=== PATIENT | female | born 1955 | race Caucasian/White ===

== ENCOUNTER → 2018-08-19 | Outpatient (CLI) | payer MEDICARE, OTHER ==
[~2018-08-19] MED LIST: ALPR0.25 PO; HYDR-3240 PO; LOSA1TAB19 PO; MULT-758 PO; ONDA4TAB7 PO; OXYC-306 PO; PRAS6.5I VG
[2018-08-19 11:48] LABS: BASOPHILS # (AUTO) 0.01 x10^3/uL (0-0.1); BASOPHILS % (AUTO) 0 % (0-1); EOSINOPHILS # (AUTO) 0.12 x10^3/uL (0-0.4); EOSINOPHILS % (AUTO) 3 % (1-7); LYMPHOCYTES % (AUTO) 42 % (22-44); MD NO; MEAN CORPUSCULAR HEMOGLOBIN 22.3 pg (27.0-34.8); MEAN CORPUSCULAR HGB CONC 32.4 g/dL (32.4-35.8); MEAN CORPUSCULAR VOLUME 68.7 fL (80-100); MEAN PLATELET VOLUME 8.2 fL (7.4-10.4); MONOCYTES # (AUTO) 0.54 x10^3/uL (0.2-0.8); MONOCYTES % (AUTO) 11 % (2-9); NEUTROPHILS % (AUTO) 44 % (42-75); PLATELET COUNT 175 x10^3/uL (130-400); RED BLOOD COUNT 5.42 x10^6/uL (3.82-5.3); RED CELL DISTRIBUTION WIDTH 16.7 % (9.6-15.2)
[2018-08-19 11:58] LABS: INTERNATIONAL NORMALIZED RATIO 1.01 (0.93-1.1); PROTHROMBIN TIME 10.6 Seconds (9.6-11.5)
[2018-08-19 12:18] LABS: ALANINE AMINOTRANSFERASE 48 U/L (12-78); ALBUMIN 4.2 g/dL (3.4-5.0); ANION GAP 7 mmol/L (5-15); CALCIUM 8.8 mg/dL (8.5-10.1); CHLORIDE 104 mmol/L (98-107); CREATININE 0.92 mg/dL (0.55-1.02)
[2018-08-19 12:20] LABS: ALKALINE PHOSPHATASE 72 U/L (45-117); BILIRUBIN,TOTAL 0.6 mg/dL (0.2-1.0); TOTAL PROTEIN 7.7 g/dL (6.4-8.2)
== END | disposition home or self-care (01) ==
LOC: STAR 10:25
PROVIDERS: ATTEND Family Medicine
DX: Z01.818 Encounter for other preprocedural examination (principal); R19.01 Right upper quadrant abdominal swelling, mass and lump; N83.7 Hematoma of broad ligament
CPT/HCPCS: 36415; 71046; 80053; 85025; 85610; 85730; 93005

== ENCOUNTER 2018-08-23 12:42 | Observation (INO) | payer MEDICARE, OTHER ==
[~2018-08-23] VITALS: Ht 165.1 cm; Wt 71.9 kg
[~2018-08-23 12:42] MED LIST changes: +BUPIVACAINE/PF 0.25% ONE; +INDOCYANINE GREEN 25 MG VIAL ONE; -ONDA4TAB7 PO; -OXYC-306 PO
[2018-08-23] MEDS ORDERED: DIAZEPAM 5 MG TABLET PO ONE (13:00)
[2018-08-23] MEDS ORDERED: ACETAMINOPHEN 500 MG TABLET PO ONE (13:00)
[2018-08-23 13:10] VITALS: BP 158/95
[2018-08-23] MEDS ORDERED: LACTATED RINGERS 1,000 ML IV SCH (13:30)
[2018-08-23] MEDS ORDERED: MIDAZOLAM 1 MG/ML, 2ML ONE (13:56)
[2018-08-23] MEDS ORDERED: FENTANYL PF 250 MCG/5ML ONE (13:57)
[2018-08-23] MEDS ORDERED: CIPROFLOXACIN/PMX 400MG/200ML 200 ML ONE (17:36)
[2018-08-23] MEDS ORDERED: VANCOMYCIN 1,000 MG ONE (17:36)
[2018-08-23] MEDS ORDERED: EPHEDRINE 50 MG/ML, 1ML ONE (17:40)
[2018-08-23] MEDS ORDERED: LIDOCAINE 2% 100MG/5ML SYRINGE ONE (17:40)
[2018-08-23] MEDS ORDERED: LORazepam 2 MG/ML, 1ML IVPush PRN (18:00)
[2018-08-23] MEDS ORDERED: ONDANSETRON 2MG/ML, 2ML IV PRN (18:00)
[2018-08-23] MEDS ORDERED: MEPERIDINE/PF 25MG/0.5ML IVPush PRN (18:00)
[2018-08-23] MEDS ORDERED: OXYcodone 5 MG/5 ML ORAL.SOL UDC PO PRN (18:00)
[2018-08-23] MEDS ORDERED: PROMETHAZINE 25 MG/ML, 1ML IV PRN (18:00)
[2018-08-23] MEDS ORDERED: ACETAMINOPHEN 325 MG TABLET PO PRN (18:00)
[2018-08-23] MEDS ORDERED: hydrALAzine 20 MG/ML, 1ML IV PRN (18:00)
[2018-08-23] MEDS ORDERED: ONDANSETRON ODT 8 MG PO PRN (18:00)
[2018-08-23] MEDS ORDERED: LABETALOL 5MG/ML, 20ML IV PRN (18:00)
[2018-08-23] MEDS ORDERED: GLYCOPYRROLATE 0.2MG/1ML, 5ML ONE (18:21)
[2018-08-23] MEDS ORDERED: NEOSTIGMINE 1 MG/ML, 10ML ONE (18:21)
[2018-08-23] MEDS ORDERED: SUCCINYLCHOLINE 20 MG/ML, 10ML ONE (18:21)
[2018-08-23] MEDS ORDERED: CEFAZOLIN 1,000 MG ONE (18:21)
[2018-08-23] MEDS ORDERED: PROPOFOL 10 MG/ML, 20ML ONE (18:21)
[2018-08-23] MEDS ORDERED: DEXAMETHASONE 4 MG/ML, 1ML ONE (18:21)
[2018-08-23] MEDS ORDERED: ROCURONIUM 10MG/ML,5ML ONE (18:21)
[2018-08-23] MEDS ORDERED: ONDANSETRON 2MG/ML, 2ML ONE (18:21)
[2018-08-23] MEDS ORDERED: SUGAMMADEX 200 MG/2 ML IVPush ONE (18:54)
[2018-08-23] MEDS: FENTANYL PF 100 MCG/2ML IV PRN ×4 (19:31→19:51)
[2018-08-23] MEDS ORDERED: FENTANYL PF 100 MCG/2ML ONE ×2 (19:31→19:41)
[2018-08-23] MEDS ORDERED: HYDROmorphone 2 MG/ML, 1ML ONE ×2 (19:32→20:03)
[2018-08-23] MEDS ORDERED: OXYcodone 5 MG/5 ML ORAL.SOL UDC ONE (19:32)
[2018-08-23] MEDS: HYDROmorphone 2 MG/ML, 1ML IVPush PRN ×6 (19:34→20:20)
[2018-08-23] MEDS ORDERED: MEPERIDINE/PF 25MG/ML,1ML ONE (20:03)
[2018-08-23] MEDS ORDERED: LORazepam 2 MG/ML, 1ML ONE (20:25)
[2018-08-23] MEDS: SODIUM CHLORIDE 0.45% 1,000 ML IV SCH (22:54)
[2018-08-23] MEDS ORDERED: SODIUM CHLORIDE 0.9% 1,000ML IVBOLUS ONE (23:00)
[2018-08-23] MEDS: KETOROLAC 30 MG/1 ML IVPush PRN (23:04)
[2018-08-23 23:55] VITALS: BP 109/56
[2018-08-24 04:20] VITALS: BP 96/58
[2018-08-24] MEDS: KETOROLAC 30 MG/1 ML IVPush PRN (04:31)
[2018-08-24 06:32] VITALS: BP 99/56
[2018-08-24] MEDS ORDERED: ONDANSETRON 2MG/ML, 2ML IVPush PRN (07:00)
[2018-08-24] MEDS: SODIUM CHLORIDE 0.45% 1,000 ML IV SCH (09:17)
[2018-08-24] MEDS ORDERED: OXYcodone/APAP 5/325MG TABLET PO PRN (09:30)
[2018-08-24 12:31] VITALS: BP 108/59
[2018-08-24] MEDS ORDERED: OXYC-306 PO (14:31)
[2018-08-24] MEDS ORDERED: ONDA4TAB7 PO (14:31)
== END 2018-08-24 15:21 | disposition home or self-care (01) ==
LOC: OUT 12:42 → 4NOR 21:10 → OUT 22:53 → DCLOUNGE 08-24 15:08
PROVIDERS: ADMIT Specialist; ATTEND Specialist
DX: D27.1 Benign neoplasm of left ovary (principal); N83.292 Other ovarian cyst, left side
CPT/HCPCS: 36415; 58571; 86850; 86900; 86923; 88112; 88305; 88307; 88331; 96374; 96375; 96376; G0378; J0330; J0690; J0744; J1100; J1170; J1885; J2060; J2175; J2250; J2405; J2704; J2710; J3010; J3370; J3490; J7030